=== PATIENT | male | born 1965 | race Caucasian/White ===

== ENCOUNTER 2023-08-20 09:47 | Outpatient (CLI) | payer OTHER | END 2023-08-20 09:53 | disposition home or self-care (01) | LOC: LAB 09:47 | PROVIDERS: ATTEND Urology | DX: R97.20 Elevated prostate specific antigen [PSA] (principal) ==

== ENCOUNTER 2023-08-24 07:02 | Outpatient (CLI) | payer OTHER | END 2023-08-24 07:17 | disposition home or self-care (01) | LOC: SONOGRAMA 07:02 | PROVIDERS: ATTEND Urology | DX: C61 Malignant neoplasm of prostate (principal); N40.1 Benign prostatic hyperplasia with lower urinary tract symptoms; R97.20 Elevated prostate specific antigen [PSA] ==

== ENCOUNTER 2023-11-02 08:30 | Inpatient (IN) | payer OTHER ==
[~2023-11-02] VITALS: Ht 167.6 cm; Wt 63.5 kg
[2023-11-02 09:57] LABS: PH,URINE 7.5 (5.0-8.0); URINE APPEARANCE Clear; URINE BILIRRUBIN Negative (NEGATIVE); URINE BLOOD Negative; URINE COLOR Yellow; URINE GLUCOSE Negative (NEGATIVE); URINE KETONE Negative (NEGATIVE); URINE LEUKOCYTE Negative; URINE NITRATE Negative; URINE PROTEIN Negative (NEGATIVE); URINE UROBILINOGEN 0.2 E.U./dl
[2023-11-02 09:58] LABS: URINE RBC 5.3 uL (0.0-20.8)
[2023-11-02 10:17] VITALS: BP 115/71
[2023-11-02 10:31] LABS: INR 1.05; PARTIAL THROMBOPLASTIN TIME 29.6 SECONDS (22.0-34.0); PROTHROMBIN TIME 11.4 SECONDS (9.0-11.5)
[2023-11-02 10:36] LABS: CALCIUM 9.7 mg/dL (8.5-10.1); GFR 76.75; POTASSIUM 5.11 mEq/L (3.5-5.1)
[2023-11-02 10:40] LABS: URINE BACTERIA 3.7 uL (0.0-1933); URINE EPITHELIAL CELLS 0.1 uL (0.0-38.8)
[2023-11-02 10:56] LABS: HEMATOCRIT 44.1 % (39.0-48.0); HEMOGLOBIN 15.1 g/dL (13-16.00); MEAN CELL VOLUME 88.8 fL (80.0-100.00); MEAN CORPUSCULAR HEMOGLOBIN 30.3 pg (27.00-32.0); MEAN CORPUSCULAR HGB CONC 34.2 g/dl (32.0-36.0); PLATELET COUNT 202 K/uL (150-450); RED BLOOD COUNT 4.97 M/uL (4.00-6.00); RED CELL DISTRIBUTION WIDTH 13.5 % (11.5-14.5)
[2023-11-02 11:42] LABS: RH POSITIVE
[2023-11-09] MEDS ORDERED: ONDANSETRON HCL 2 MG/ML VIAL IV PRN (07:45)
[2023-11-09] MEDS ORDERED: MORPHINE SULFATE 2 MG/ML CARTRIDGE IV PRN (07:45)
[2023-11-09] MEDS ORDERED: DOCUSATE SODIUM 100MG CAP PO SCH (09:00)
[2023-11-09] MEDS ORDERED: SIMETHICONE 125 MG CAPSULE PO SCH (09:00)
[2023-11-09] MEDS ORDERED: CEFAZOLIN SODIUM 1,000 MG VIAL IV SCH (09:00)
[2023-11-09] MEDS ORDERED: FAMOtidine 20 MG TABLET PO SCH (09:00)
[2023-11-09] MEDS ORDERED: DEXTROSE 5 %-0.45 % SOD CHLORD 1,000 ML IV SCH (09:00)
[2023-11-09] MEDS ORDERED: CEFAZOLIN SODIUM 1,000 MG in 0.9 % SODIUM CHLORIDE 50 ML IV ONE (09:15)
[2023-11-09] MEDS ORDERED: ENOXAPARIN SODIUM 40 MG/0.4 ML SYRINGE SUBCUTANEO ONE (09:15)
[2023-11-09] MEDS ORDERED: SUGAMMADEX SODIUM 200 MG/2 ML VIAL IV ONE (13:00)
[2023-11-09] MEDS ORDERED: ACETAMINOPHEN 500 MG GEL..CAP PO PRN (13:15)
[2023-11-09] MEDS ORDERED: ENALAPRILAT DIHYDRATE 1.25 MG/ML VIAL IV PRN (13:15)
[2023-11-09] MEDS ORDERED: MORPHINE SULFATE 4 MG/ML VIAL IV ONE ×2 (14:00→14:30)
[2023-11-09 18:00] VITALS: BP 118/65; O2SAT 98
[2023-11-10 01:52] VITALS: BP 113/74; O2SAT 98
[2023-11-10 08:00] VITALS: BP 127/69; O2SAT 95
[2023-11-10] MEDS ORDERED: OxyCODONE HCL/APAP UD (PERCOCET) PO PRN (08:15)
[2023-11-10 08:50] LABS: HEMATOCRIT 37.7 % (39.0-48.0); HEMOGLOBIN 13.1 g/dL (13-16.00); MEAN CELL VOLUME 88.9 fL (80.0-100.00); MEAN CORPUSCULAR HGB CONC 34.8 g/dl (32.0-36.0); PLATELET COUNT 188 K/uL (150-450); RED BLOOD COUNT 4.24 M/uL (4.00-6.00); RED CELL DISTRIBUTION WIDTH 13.1 % (11.5-14.5)
[2023-11-10 08:53] LABS: CALCIUM 7.9 mg/dL (8.5-10.1); CREATININE SERUM 0.89 mg/dL (0.70-1.30); GFR 87.79; POTASSIUM 4.11 mEq/L (3.5-5.1)
[2023-11-10] MEDS ORDERED: ENOXAPARIN SODIUM 40 MG/0.4 ML SYRINGE SUBCUTANEO SCH (09:15)
[2023-11-10 18:27] VITALS: BP 106/71; O2SAT 97
[2023-11-11 00:35] VITALS: BP 132/79; O2SAT 97
[2023-11-11 08:28] VITALS: BP 136/83; O2SAT 95
== END 2023-11-11 15:15 | disposition home or self-care (01) | DRG 708 ==
LOC: EDSTATUS 08:30 → O/R 11-09 05:35 → CIR.AMB 11-09 07:00 → EDSTATUS 11-09 08:30 → SURH 11-09 08:30
PROVIDERS: ADMIT Urology; ATTEND Urology
PROC: 8E0W4CZ Robotic Assisted Procedure of Trunk Region, Percutaneous Endoscopic Approach (ICD-10-PCS; 2023-11-09)
PROC: 0VT04ZZ Resection of Prostate, Percutaneous Endoscopic Approach (ICD-10-PCS; principal; 2023-11-09 07:00)
DX: C61 Malignant neoplasm of prostate (principal)
CPT/HCPCS: 55866; S2900